=== PATIENT | female | born 1975 | race Caucasian/White ===

== ENCOUNTER → 2024-01-11 07:47 | Outpatient (REF) | payer BC, SELFPAY ==
[2024-01-11 09:50] LABS: % Basophils 0.7 % (0-2); % Eosinophils 8.8 % (0-6); % Immature Granulocytes 0.3 % (0-0.5); % Lymphocytes 25.2 % (20.5-51.1); % Monocytes 5.3 % (1.7-9.3); % Neutrophils 59.7 % (42.2-75.2); Absolute Basophils 0.1 10^3/uL (0-0.2); Absolute Eosinophils 0.7 10^3/uL (0-0.7); Absolute Lymphocytes 1.9 10^3/uL (1.2-3.4); Absolute Monocytes 0.4 10^3/uL (0.1-0.6); Absolute Neutrophils 4.6 10^3/uL (1.4-6.5); Hematocrit 40.6 % (37.0-47.0); Hemoglobin 13.4 g/dL (12.0-16.0); Mean Corpuscular Hgb 29.7 pg (27.0-31.0); Mean Platelet Volume 9.8 fL (7.4-10.4); Nucleated Red Blood Cells % 0 %; Platelet Count 357 10^3/uL (130-400); Red Blood Cell Count 4.51 10^6/uL (4.20-5.40); Red Cell Dist. Width 12.2 % (11.5-14.5); White Blood Cell Count 7.6 10^3/uL (4.8-10.8)
[2024-01-11 10:15] LABS: Iron 88 ug/dl (37-170)
[2024-01-11 10:27] LABS: Percent Saturation 27 % (20-50); Total Iron Binding Capacity 316 ug/dl (265-497)
[2024-01-11 10:56] LABS: Ferritin 49.6 ng/ml (6.24-137)
== END ==
LOC: HWLAB 07:47
PROVIDERS: ATTENDING PHYSICIAN Internal Medicine Hematology & Oncology; FAMILY PHYSICIAN Family Medicine
DX: D50.9 Iron deficiency anemia, unspecified (principal)
CPT/HCPCS: 36415; 82728; 83540; 83550; 85025

== ENCOUNTER → 2024-03-13 08:33 | Outpatient (REF) | payer BC, SELFPAY ==
[2024-03-13 09:44] LABS: % Basophils 0.7 % (0-2); % Eosinophils 6.5 % (0-6); % Immature Granulocytes 0.3 % (0-0.5); % Lymphocytes 21.6 % (20.5-51.1); % Monocytes 6.7 % (1.7-9.3); % Neutrophils 64.2 % (42.2-75.2); Absolute Basophils 0.1 10^3/uL (0-0.2); Absolute Eosinophils 0.6 10^3/uL (0-0.7); Absolute Lymphocytes 1.9 10^3/uL (1.2-3.4); Absolute Monocytes 0.6 10^3/uL (0.1-0.6); Absolute Neutrophils 5.7 10^3/uL (1.4-6.5); Hematocrit 39.3 % (37.0-47.0); Hemoglobin 13.1 g/dL (12.0-16.0); Mean Corp Hgb Conc. 33.3 g/dL (33.0-37.0); Mean Corpuscular Hgb 29.9 pg (27.0-31.0); Mean Corpuscular Volume 89.7 fL (81.0-99.0); Mean Platelet Volume 9.7 fL (7.4-10.4); Nucleated Red Blood Cells % 0 %; Platelet Count 380 10^3/uL (130-400); Red Blood Cell Count 4.38 10^6/uL (4.20-5.40); Red Cell Dist. Width 12.3 % (11.5-14.5); White Blood Cell Count 8.9 10^3/uL (4.8-10.8)
[2024-03-13 09:55] LABS: Iron 111 ug/dl (37-170)
[2024-03-13 10:04] LABS: Percent Saturation 31 % (20-50); Total Iron Binding Capacity 349 ug/dl (265-497)
[2024-03-13 10:37] LABS: Ferritin 35.5 ng/ml (6.24-137)
== END ==
LOC: HWRAD 08:33
PROVIDERS: ATTENDING PHYSICIAN Internal Medicine Gastroenterology; FAMILY PHYSICIAN Family Medicine; REFERRING PHYSICIAN Internal Medicine Hematology & Oncology
DX: K51.019 Ulcerative (chronic) pancolitis with unspecified complications (principal); Z92.241 Personal history of systemic steroid therapy; D50.9 Iron deficiency anemia, unspecified
CPT/HCPCS: 36415; 77080; 82728; 83540; 83550; 85025

== ENCOUNTER → 2024-10-27 12:29 | Outpatient (REF) | payer BC, SELFPAY ==
[2024-10-27 16:13] LABS: Iron 118 ug/dl (37-170)
[2024-10-27 16:21] LABS: % Basophils 0.7 % (0-2); % Immature Granulocytes 0.4 % (0-0.5); % Lymphocytes 26.7 % (20.5-51.1); % Monocytes 4.5 % (1.7-9.3); % Neutrophils 62.7 % (42.2-75.2); Absolute Basophils 0.1 10^3/uL (0-0.2); Absolute Eosinophils 0.5 10^3/uL (0-0.7); Absolute Lymphocytes 2.7 10^3/uL (1.2-3.4); Absolute Monocytes 0.5 10^3/uL (0.1-0.6); Absolute Neutrophils 6.4 10^3/uL (1.4-6.5); Hematocrit 39.1 % (37.0-47.0); Hemoglobin 12.5 g/dL (12.0-16.0); Mean Corpuscular Hgb 28.1 pg (27.0-31.0); Mean Corpuscular Volume 87.9 fL (81.0-99.0); Mean Platelet Volume 9.9 fL (7.4-10.4); Nucleated Red Blood Cells % 0 %; Platelet Count 422 10^3/uL (130-400); Red Blood Cell Count 4.45 10^6/uL (4.20-5.40); Red Cell Dist. Width 13.3 % (11.5-14.5); White Blood Cell Count 10.2 10^3/uL (4.8-10.8)
[2024-10-27 16:22] LABS: Percent Saturation 26 % (20-50); Total Iron Binding Capacity 438 ug/dl (265-497)
[2024-10-27 16:49] LABS: Ferritin 10.4 ng/ml (6.24-137)
== END ==
LOC: HWLAB 12:29
PROVIDERS: ATTENDING PHYSICIAN Internal Medicine Hematology & Oncology; FAMILY PHYSICIAN Family Medicine
DX: D50.9 Iron deficiency anemia, unspecified (principal)
CPT/HCPCS: 36415; 82728; 83540; 83550; 85025

== ENCOUNTER → 2025-01-12 08:53 | Outpatient (REF) | payer BC, SELFPAY ==
[2025-01-12 11:59] LABS: % Basophils 0.7 % (0-2); % Eosinophils 8.4 % (0-6); % Immature Granulocytes 0.2 % (0-0.5); % Lymphocytes 26.1 % (20.5-51.1); % Monocytes 6.3 % (1.7-9.3); % Neutrophils 58.3 % (42.2-75.2); Absolute Basophils 0.1 10^3/uL (0-0.2); Absolute Eosinophils 0.7 10^3/uL (0-0.7); Absolute Lymphocytes 2.2 10^3/uL (1.2-3.4); Absolute Monocytes 0.5 10^3/uL (0.1-0.6); Hematocrit 34.9 % (37.0-47.0); Hemoglobin 11.4 g/dL (12.0-16.0); Mean Corp Hgb Conc. 32.7 g/dL (33.0-37.0); Mean Corpuscular Hgb 27.7 pg (27.0-31.0); Mean Corpuscular Volume 84.7 fL (81.0-99.0); Nucleated Red Blood Cells % 0 %; Platelet Count 368 10^3/uL (130-400); Red Blood Cell Count 4.12 10^6/uL (4.20-5.40); Red Cell Dist. Width 14.2 % (11.5-14.5); White Blood Cell Count 8.6 10^3/uL (4.8-10.8)
[2025-01-12 12:15] LABS: Iron 41 ug/dl (37-170)
[2025-01-12 12:24] LABS: Percent Saturation 9 % (20-50); Total Iron Binding Capacity 438 ug/dl (265-497)
[2025-01-12 12:47] LABS: Ferritin 7.2 ng/ml (6.24-137)
== END ==
LOC: HWLAB 08:53
PROVIDERS: ATTENDING PHYSICIAN Internal Medicine Hematology & Oncology; FAMILY PHYSICIAN Family Medicine
DX: D50.9 Iron deficiency anemia, unspecified (principal); D68.9 Coagulation defect, unspecified
CPT/HCPCS: 82728; 83540; 83550; 85025

== ENCOUNTER → 2025-01-23 15:13 | Outpatient (REF) | payer BC, SELFPAY ==
[2025-01-23 15:14] LABS: % Basophils 0.7 % (0-2); % Eosinophils 7.2 % (0-6); % Immature Granulocytes 0.1 % (0-0.5); % Lymphocytes 27.3 % (20.5-51.1); % Monocytes 5.6 % (1.7-9.3); % Neutrophils 59.1 % (42.2-75.2); Absolute Basophils 0.1 10^3/uL (0-0.2); Absolute Eosinophils 0.5 10^3/uL (0-0.7); Absolute Monocytes 0.4 10^3/uL (0.1-0.6); Absolute Neutrophils 4.3 10^3/uL (1.4-6.5); Hemoglobin 10.8 g/dL (12.0-16.0); Mean Corp Hgb Conc. 32.7 g/dL (33.0-37.0); Mean Corpuscular Hgb 27.8 pg (27.0-31.0); Mean Corpuscular Volume 84.8 fL (81.0-99.0); Mean Platelet Volume 9.1 fL (7.4-10.4); Platelet Count 459 10^3/uL (130-400); Red Blood Cell Count 3.89 10^6/uL (4.20-5.40); Red Cell Dist. Width 14.2 % (11.5-14.5); White Blood Cell Count 7.3 10^3/uL (4.8-10.8)
== END ==
LOC: OIDL 15:13
PROVIDERS: ATTENDING PHYSICIAN Nurse Practitioner Adult Health
DX: D50.9 Iron deficiency anemia, unspecified (principal); D68.9 Coagulation defect, unspecified
CPT/HCPCS: 85025

== ENCOUNTER → 2025-01-29 08:42 | Outpatient (REF) | payer BC, SELFPAY ==
[2025-01-29 08:50] LABS: % Basophils 0.8 % (0-2); % Eosinophils 7.8 % (0-6); % Immature Granulocytes 0.3 % (0-0.5); % Lymphocytes 26.1 % (20.5-51.1); % Monocytes 6.3 % (1.7-9.3); % Neutrophils 58.7 % (42.2-75.2); Absolute Basophils 0.1 10^3/uL (0-0.2); Absolute Eosinophils 0.6 10^3/uL (0-0.7); Absolute Lymphocytes 2.1 10^3/uL (1.2-3.4); Absolute Monocytes 0.5 10^3/uL (0.1-0.6); Absolute Neutrophils 4.7 10^3/uL (1.4-6.5); Hematocrit 35.5 % (37.0-47.0); Hemoglobin 11.5 g/dL (12.0-16.0); Mean Corp Hgb Conc. 32.4 g/dL (33.0-37.0); Mean Corpuscular Hgb 27.7 pg (27.0-31.0); Mean Corpuscular Volume 85.5 fL (81.0-99.0); Mean Platelet Volume 9.2 fL (7.4-10.4); Platelet Count 446 10^3/uL (130-400); Red Blood Cell Count 4.15 10^6/uL (4.20-5.40); Red Cell Dist. Width 15.3 % (11.5-14.5); White Blood Cell Count 7.9 10^3/uL (4.8-10.8)
== END ==
LOC: OIDL 08:42
PROVIDERS: ATTENDING PHYSICIAN Nurse Practitioner Adult Health
DX: D50.9 Iron deficiency anemia, unspecified (principal); D68.9 Coagulation defect, unspecified
CPT/HCPCS: 85025

== ENCOUNTER → 2025-04-24 06:58 | Outpatient (REF) | payer BC, SELFPAY ==
[2025-04-24 09:31] LABS: % Basophils 0.6 % (0-2); % Eosinophils 7.8 % (0-6); % Immature Granulocytes 0.2 % (0-0.5); % Lymphocytes 30.5 % (20.5-51.1); % Monocytes 6.9 % (1.7-9.3); Absolute Basophils 0.1 10^3/uL (0-0.2); Absolute Eosinophils 0.7 10^3/uL (0-0.7); Absolute Lymphocytes 2.7 10^3/uL (1.2-3.4); Absolute Monocytes 0.6 10^3/uL (0.1-0.6); Absolute Neutrophils 4.8 10^3/uL (1.4-6.5); Hematocrit 39.8 % (37.0-47.0); Hemoglobin 13.3 g/dL (12.0-16.0); Mean Corp Hgb Conc. 33.4 g/dL (33.0-37.0); Mean Corpuscular Hgb 29.6 pg (27.0-31.0); Mean Corpuscular Volume 88.6 fL (81.0-99.0); Mean Platelet Volume 9.7 fL (7.4-10.4); Nucleated Red Blood Cells % 0 %; Platelet Count 390 10^3/uL (130-400); Red Blood Cell Count 4.49 10^6/uL (4.20-5.40); Red Cell Dist. Width 14.2 % (11.5-14.5); White Blood Cell Count 8.9 10^3/uL (4.8-10.8)
[2025-04-24 10:23] LABS: Ferritin 37.5 ng/ml (6.24-137)
[2025-04-24 10:57] LABS: Iron 47 ug/dl (37-170)
[2025-04-24 11:06] LABS: Percent Saturation 13 % (20-50); Total Iron Binding Capacity 354 ug/dl (265-497)
== END ==
LOC: HWLAB 06:58
PROVIDERS: ATTENDING PHYSICIAN Internal Medicine Hematology & Oncology; FAMILY PHYSICIAN Family Medicine
DX: D50.9 Iron deficiency anemia, unspecified (principal); D68.9 Coagulation defect, unspecified
CPT/HCPCS: 36415; 82728; 83540; 83550; 85025

== ENCOUNTER → 2025-06-15 10:35 | Outpatient (REF) | payer BC, SELFPAY ==
[2025-06-15 15:28] LABS: Hematocrit 38.8 % (37.0-47.0); Hemoglobin 12.7 g/dL (12.0-16.0); Mean Corp Hgb Conc. 32.7 g/dL (33.0-37.0); Mean Corpuscular Volume 90.0 fL (81.0-99.0); Nucleated Red Blood Cells % 0 %; Platelet Count 434 10^3/uL (130-400); Red Cell Dist. Width 12.7 % (11.5-14.5)
[2025-06-15 16:16] LABS: ALT (SGPT) 14 U/L (0-35); AST (SGOT) 25 U/L (14-36); Albumin 4.7 g/dl (3.5-5.0); Alkaline Phosphatase 52 U/L (38-126); Blood Urea Nitrogen 9 mg/dl (7-17); Calcium 9.4 mg/dl (8.4-10.2); Carbon Dioxide 25 mmol/L (22-30); Chloride 104 mmol/L (98-107); Glucose 97 mg/dl (70-99); HDL Cholesterol 88 mg/dl; Iron 135 ug/dl (37-170); LDL Cholesterol, Calculated 81 mg/dl; Potassium 4.6 mmol/L (3.5-5.1); Sodium 137 mmol/L (135-145); Total Protein 7.6 g/dl (6.3-8.2); Very Low Density Lipoprotein 15 mg/dl (0-30); eGFR > 60.00
[2025-06-15 16:20] LABS: C-Reactive Protein 5.30 mg/L (0.0-10.00)
[2025-06-15 16:29] LABS: Total Iron Binding Capacity 417 ug/dl (265-497)
[2025-06-15 16:51] LABS: TSH 1.77 uIU/ml (0.47-4.68)
[2025-06-15 16:56] LABS: Ferritin 14.1 ng/ml (6.24-137)
[2025-06-16 08:52] LABS: Glycohemoglobin (HgbA1c) 5.0 % (4.0-5.6)
== END ==
LOC: HWLAB 10:35
PROVIDERS: ATTENDING PHYSICIAN Internal Medicine Hematology & Oncology; FAMILY PHYSICIAN Family Medicine
DX: D50.9 Iron deficiency anemia, unspecified (principal); D68.9 Coagulation defect, unspecified; Z00.00 Encounter for general adult medical examination without abnormal findings; R53.83 Other fatigue; M25.50 Pain in unspecified joint
CPT/HCPCS: 36415; 80053; 80061; 82728; 83036; 83540; 83550; 84439; 84443; 85025; 85652; 86038; 86140; 86430

== ENCOUNTER → 2025-07-18 06:51 | Outpatient (REF) | payer BC, SELFPAY | LOC: HWWDC 06:51 | PROVIDERS: ATTENDING PHYSICIAN Family Medicine | DX: Z12.31 Encounter for screening mammogram for malignant neoplasm of breast (principal) | CPT/HCPCS: 77063; 77067 ==

== ENCOUNTER → 2025-07-27 08:20 | Outpatient (REF) | payer BC, SELFPAY ==
[2025-07-27 09:57] LABS: Hematocrit 34.5 % (37.0-47.0); Hemoglobin 11.2 g/dL (12.0-16.0); Mean Corp Hgb Conc. 32.5 g/dL (33.0-37.0); Mean Corpuscular Volume 89.6 fL (81.0-99.0); Nucleated Red Blood Cells % 0 %; Platelet Count 392 10^3/uL (130-400); Red Cell Dist. Width 12.7 % (11.5-14.5)
[2025-07-27 10:34] LABS: Iron 32 ug/dl (37-170)
[2025-07-27 10:44] LABS: Total Iron Binding Capacity 397 ug/dl (265-497)
[2025-07-27 11:10] LABS: Ferritin 8.7 ng/ml (6.24-137)
== END ==
LOC: HWLAB 08:20
PROVIDERS: ATTENDING PHYSICIAN Internal Medicine Hematology & Oncology; FAMILY PHYSICIAN Family Medicine
DX: D50.9 Iron deficiency anemia, unspecified (principal); D68.9 Coagulation defect, unspecified
CPT/HCPCS: 36415; 82728; 83540; 83550; 85025